=== PATIENT | female | born 1985 | race African-American/Black ===

== ENCOUNTER 2017-08-29 13:37 | Emergency (ER) | payer OTHER ==
[2017-08-29 13:47] VITALS: BMI 29.5
--- NOTE | 2017-08-29 14:53 | PDOC ---
History of Present Illness - General Chief Complaint: Lightheaded Stated Complaint: LETHARGIC, DIZZINESS Time Seen by Provider: 08/29/17 14:10 - History of Present Illness Initial Comments: 08/29/17 14:52 32 yo F with h/o IDDM, total thryoidectomy Hypothyroidism who p/w lightheadedness. Patient reports increased fatigue and lightheadedness following recent return from [facility] ( 07/31/17-08/17/17). States that Thursday () this week patient experienced severe episode of lightheadedness upon waking up from sleep, lasting for minutes and resolving spontaneously at rest. Denies LOC. Currently denies F/C, cough, hemoptysis, N/V, palpitations, orthopnea, PND, leg swelling/pain, CP, SOB, abdominal pain, diarrhea, constipation, urinary complaints, vertigo, sensory changes. Patient with IDDM ( insulin pump remoeved 2 months ago) now on Humalog 10-12 U. Last BS 280 this AM. Denies PO intake today. Last Inuslin use yesertday evening 12 U. Patient also scheduled for oupt. stress testing d/t episodes of transient episodes of palpitations and left sided, non pleuritic, non radiating chest pain , with no identifiable triggers or alleviators. Last experienced late June 2017. PMHx: as noted above. Denies h/o PE/DVT. ROS: as noted above SHx: Denies tobacco, IVDA. Intermittent EtoH. PMD: Dr. Soraida Alamo. Past History - Past Medical History Allergies/Adverse Reactions: Allergies Allergy/AdvReac Type Severity Reaction Status Date / Time avocado Allergy "VOMITING Verified 08/29/17 13:46 AND FACIAL REDNESS" No Known Drug Allergies Allergy Verified 08/29/17 13:46 Home Medications: Ambulatory Orders Atorvastatin Ca [Lipitor] 10 mg PO HS 01/01/16 Insulin Glargine,Hum.rec.anlog [Lantus Solostar PEN -] 0 units SQ BID 01/01/16 Insulin Lispro [Humalog] 6 unit SQ ASDIR 01/01/16 Oxycodone HCl/Acetaminophen [Percocet 5-325 mg Tablet] 1 tab PO Q4H PRN #42 tablet MDD 6 01/02/16 Acetaminophen [Tylenol .Regular Strength -] 325 mg PO Q4H PRN #0 tablet Calcium Carbonate/Vitamin D3 [Calcium 500 + Vit D 200 Caplet] 1 each PO TID #90 tablet 01/03/16 Levothyroxine [Synthroid -] 50 mcg PO DAILY #30 tablet MDD 1 01/03/16 COPD: No Diabetes: Yes (IDDM DM2 USES INSULIN) HTN: Yes (DENIES) Hypercholesterolemia: Yes Thyroid Disease: Yes (hyperthyroid) - Reproductive History (#): 1 Para: 0 Cervical CA: No Dysfunctional Uterine Bleeding: No Ectopic : No Endometrial CA: No Polycystic Ovaries: No Therapeutic (s) & number: No Tubal Ligation: No Spontaneous : 0 - Immunization History Immunization Up to Date: Yes - Suicide/Smoking/Psychosocial Hx Smoking Status: Yes Smoking History: Never smoked Have you smoked in the past 12 months: No Number of Cigarettes Smoked Daily: 0 Hx Alcohol Use: Yes (occasion) Drug/Substance Use Hx: No Substance Use Type: Alcohol Hx Substance Use Treatment: No Review of Systems - Review of Systems Comments:: 08/29/17 14:52 GENERAL/CONSTITUTIONAL: No fever or chills. No weakness. HEAD, EYES, EARS, NOSE AND THROAT: No change in vision. No ear pain or discharge. No sore throat. CARDIOVASCULAR: No chest pain or shortness of breath RESPIRATORY: No cough, wheezing, or hemoptysis. GASTROINTESTINAL: No nausea, vomiting, diarrhea or constipation. GENITOURINARY: No dysuria, frequency, or change in urination. MUSCULOSKELETAL: No joint or muscle swelling or pain. No neck or back pain. SKIN: No rash NEUROLOGIC: + Fatigue and lightheadedness. No headache, vertigo, loss of consciousness, or change in strength/sensation. ENDOCRINE: No increased thirst. No abnormal weight change HEMATOLOGIC/LYMPHATIC: No anemia, easy bleeding, or history of blood clots. ALLERGIC/IMMUNOLOGIC: No hives or skin allergy. *Physical Exam - Vital Signs Last Vital Signs Temp Pulse Resp BP Pulse Ox 98.9 F 67 18 139/84 99 08/29/17 13:44 08/29/17 13:44 08/29/17 13:44 08/29/17 13:44 08/29/17 13:44 - Physical Exam Comments: 08/29/17 14:52 GENERAL: Awake, alert, and fully oriented, in no acute distress HEAD: No signs of trauma, normocephalic, atraumatic EYES: PERRLA, EOMI, sclera anicteric, conjunctiva clear ENT: Auricles normal inspection, hearing grossly normal, nares patent, oropharynx clear without exudates. Moist mucosa NECK: Normal ROM, supple, no lymphadenopathy, JVD, or masses LUNGS: No distress, speaks full sentences, clear to auscultation bilaterally HEART: Regular rate and rhythm, normal S1 and S2, no murmurs, rubs or gallops, peripheral pulses normal and equal bilaterally. EXTREMITIES : Normal inspection, Normal range of motion, no edema. No clubbing or cyanosis. NEUROLOGICAL: Cranial nerves II through XII grossly intact. Normal speech, normal gait, no focal sensorimotor deficits SKIN: Warm, Dry, normal turgor, no rashes or lesions noted ED Treatment Course - LABORATORY CBC & Chemistry Diagram: 08/29/17 15:25 08/29/17 17:11 Medical Decision Making - Medical Decision Making 08/29/17 15:43 32 yo F with h/o IDDM, total thyroidectomy Hypothyroidism who p/w lightheadedness. VSS, AF, A&OX3. Assess for cardiac dyssarythmia, hyperglycemia/ hypoglycemia, hypothyroidism, orthostasis, hypovolemia. Low suspicion of neurogenic or vasovagal syncope. Will assess for Will assess for electrolyte abnml, toxic or metabolic derangements,acid-base disturbances, or underlying infection. PERC neg PE. ED Course: CBC, CMP, VBG, Acetone, Cardiac UA, EKG, CXR 08/29/17 16:31 EKG: NSR with absent TANIYA, STD, or TWI. Nml axis and interval duration. 08/29/17 17:31 CBC: Unremarkable Trop: Neg Acetone: Neg UA: Neg VBG: Unremarkable 08/29/17 17:37 CMP: Unremarkable 08/29/17 17:50 Patient stable for d/c with return precautions. Able to ambulate without difficulty. *DC/Admit/Observation/Transfer Diagnosis at time of Disposition: Lightheadedness - Referrals Referrals: Soraida Alamo MD [Primary Care Provider] - - Patient Instructions Printed Discharge Instructions: DI for Fatigue Additional Instructions: Please return to the emergency department with any new or worsening symptoms or concerns. Please follow up with your primary care physician within 72 hours. - Post Discharge Activity - Attestations Physician Attestion: 08/29/17 17:32 I attest to the information provided in this note.
[2017-08-29 15:53] LABS: URINE APPEARANCE CLEAR; URINE BILIRUBIN NEGATIVE (<2.0 mg/dL); URINE BLOOD NEGATIVE (NEGATIVE); URINE COLOR LTYELLOW; URINE GLUCOSE (UA) 3+ (NEGATIVE); URINE KETONE TRACE (NEGATIVE); URINE LEUK ESTERASE NEGATIVE (NEGATIVE); URINE NITRITE NEGATIVE (NEGATIVE); URINE PROTEIN NEGATIVE (NEGATIVE); URINE UROBILINOGEN NEGATIVE mg/dL (0.2-1.0)
[2017-08-29] MEDS ORDERED: SODIUM CHLORIDE 1,000 ML IV STA (16:00)
[2017-08-29 16:16] LABS: BASO % 1.3 % (0-2.0); EOS % 1.2 % (0-4.5); HEMATOCRIT 38.3 % (32.4-45.2); HEMOGLOBIN 12.5 GM/dL (10.7-15.3); LYMPH % 50.2 % (8-40); MCHC 32.8 g/dl (32.0-36.0); MEAN CELL VOLUME 88.5 fl (80-96); MEAN PLT VOLUME 10.4 fl (7.5-11.1); MONO % 9.3 % (3.8-10.2); PLATELET COUNT 204 K/MM3 (134-434); RBC 4.32 M/mm3 (3.60-5.2); WHITE BLOOD COUNT 4.9 K/mm3 (4.0-10.0)
[2017-08-29 16:18] LABS: VENOUS PH 7.37 (7.32-7.42)
[2017-08-29 16:19] LABS: VENOUS PC02 42.6 mmHg (38-52); VENOUS PO2 31.8 mmHg (28-48)
[2017-08-29 16:40] LABS: INR 1.08 (0.82-1.09); PROTHROMBIN TIME (PATIENT) 12.2 SEC (9.7-13.0)
--- NOTE | 2017-08-29 17:13 | PDOC ---
Attending Attestation - Resident Resident Name: Willy Lutz - ED Attending Attestation I have performed the following: I have examined & evaluated the patient, The case was reviewed & discussed with the resident, I agree w/resident's findings & plan, Exceptions are as noted - HPI HPI: 08/29/17 17:11 32 yo F with IDDM, thyroidectomy for hyperthyroid, anemia, here with c/o fatigue. noted on returning after month long trip to [facility]. states periods are regular. not . no f/c no weight loss. follows dr beach. - Physicial Exam PE: 08/29/17 17:12 awake alert lungs clear bilaterally heart rrr no mrg abd soft nt nd. skin warm and dry. 2 + dp/ pt. 5/5 all four ext. - Medical Decision Making 08/29/17 17:13 differential hypo or hyperthyroid, hyperglycemia, dehydration anemia. plan labs ekg ua u preg.
[2017-08-29 17:30] LABS: ALBUMIN 3.8 g/dl (3.4-5.0); ANION GAP 11 (8-16); BILIRUBIN,TOTAL 0.3 mg/dL (0.2-1.0); BLOOD UREA NITROGEN 6 mg/dL (7-18); CALCIUM 8.4 mg/dL (8.5-10.1); CHLORIDE 102 mmol/L (98-107); CO2 23 mmol/L (21-32); CREATININE 0.9 mg/dL (0.55-1.02); GLUCOSE,RANDOM 273 mg/dL (74-106); POTASSIUM 4.3 mmol/L (3.5-5.1); SGOT/AST 11 U/L (15-37); SGPT/ALT 16 U/L (12-78); SODIUM 136 mmol/L (136-145); TOT PROT 7.6 g/dl (6.4-8.2)
[2017-08-29 17:31] LABS: ALK PHOS 66 U/L (45-117)
[2017-08-29 19:30] VITALS: BP 127/65; PULSE 69; TEMP 98.1
--- NOTE | 2017-08-30 22:10 | EKG ---
Test Reason : Blood Pressure : / mmHG Vent. Rate : 061 BPM Atrial Rate : 061 BPM P-R Int : 146 ms QRS Dur : 082 ms QT Int : 412 ms P-R-T Axes : 081 084 061 degrees QTc Int : 414 ms NORMAL SINUS RHYTHM NORMAL ECG WHEN COMPARED WITH ECG OF 29-OCT-2014 23:20, VENT. RATE HAS DECREASED BY 40 BPM Confirmed by YESY BLOOD MD ([id number]) on 08/30/2017 10:09:44 PM Referred By: Confirmed By:YESY BLOOD MD
== END 2017-08-29 19:37 | disposition home or self-care (01) ==
LOC: JER 13:37
PROC: 3E0337Z Introduction of Electrolytic and Water Balance Substance into Peripheral Vein, Percutaneous Approach (ICD-10-PCS; principal; 2017-08-29)
DX: R42 Dizziness and giddiness (principal); E11.9 Type 2 diabetes mellitus without complications; Z79.4 Long term (current) use of insulin; E89.0 Postprocedural hypothyroidism
CPT/HCPCS: 36415; 80053; 81003; 82009; 82550; 82553; 82803; 84443; 84484; 84703; 85025; 85610; 93005; 93010; 96360; 99284-25; J7030

== ENCOUNTER 2018-02-23 21:11 | Emergency (ER) | payer OTHER ==
--- NOTE | 2018-02-23 21:26 | PDOC ---
Rapid Medical Evaluation Time Seen by Provider: 02/23/18 21:24 Medical Evaluation: Allergies Allergy/AdvReac Type Severity Reaction Status Date / Time avocado Allergy "VOMITING Verified 08/29/17 13:46 AND FACIAL REDNESS" No Known Drug Allergies Allergy Verified 08/29/17 13:46 02/23/18 21:24 Patient c/o: rt lower abd cramping radiating to right back, no discharge/irreg menses, no other complaints Patient on brief exam:no cva tenderness Patient ordered for: ua, upreg, ucx The patient will proceed to the ED Discharge Disposition - Diagnosis Abdominal pain - Referrals Referrals: Soraida Alamo MD [Primary Care Provider] - - Patient Instructions - Post Discharge Activity
[2018-02-23 21:28] VITALS: BMI 29.0
[2018-02-23 21:57] LABS: URINE APPEARANCE CLEAR; URINE BILIRUBIN NEGATIVE (<2.0 mg/dL); URINE COLOR YELLOW; URINE GLUCOSE (UA) 3+ (NEGATIVE); URINE KETONE NEGATIVE (NEGATIVE); URINE LEUK ESTERASE NEGATIVE (NEGATIVE); URINE NITRITE NEGATIVE (NEGATIVE); URINE PROTEIN NEGATIVE (NEGATIVE); URINE UROBILINOGEN NEGATIVE mg/dL (0.2-1.0)
[2018-02-23 22:02] LABS: HCG,QUALITATIVE URINE Negative
[2018-02-23] MEDS ORDERED: KETOROLAC TROMETHAMINE 30 MG/1 ML VIAL IVPUSH ONE (22:49)
--- NOTE | 2018-02-23 23:01 | PDOC ---
History of Present Illness - General Chief Complaint: Pain, Acute Stated Complaint: RIGHT SIDE PAIN IN THE BACK Time Seen by Provider: 02/23/18 21:24 - History of Present Illness Initial Comments: 02/23/18 23:04 The patient is a 32 year old female with a history of DM, HLD, Hypothyroid who presents for evaluation of abdominal pain and back pain. The patient reports that she usually experiences lower abdominal pain and back pain that she describes as crampy in nature after her menstrual cycle. She notes that her menstrual cycle ended 1 week ago and she has continued to have these symptoms which usually resolve prompting her presentation to the ED for further evaluation. She otherwise denies fevers, chills, SOB, chest pain, nausea, vomiting, or changes with urination or bowel movements. Past History - Past Medical History Allergies/Adverse Reactions: Allergies Allergy/AdvReac Type Severity Reaction Status Date / Time avocado Allergy "VOMITING Verified 08/29/17 13:46 AND FACIAL REDNESS" No Known Drug Allergies Allergy Verified 02/23/18 21:28 Home Medications: Ambulatory Orders Atorvastatin Ca [Lipitor] 10 mg PO HS 01/01/16 Insulin Glargine,Hum.rec.anlog [Lantus Solostar PEN -] 0 units SQ BID 01/01/16 Insulin Lispro [Humalog] 6 unit SQ ASDIR 01/01/16 Levothyroxine [Synthroid -] 50 mcg PO DAILY #30 tablet MDD 1 01/03/16 Cyanocobalamin (Vitamin B-12) [Vitamin B12] 2,500 mcg PO DAILY 02/23/18 Ferrous Sulfate 325 mg PO DAILY 02/23/18 [place]-3S/Dha/Epa/Fish Oil [Fish Oil 1,200 mg Softgel] 1 each PO DAILY 02/23/18 Ramipril 2.5 mg PO DAILY 02/23/18 COPD: No Diabetes: Yes (IDDM DM2 USES INSULIN) HTN: Yes (DENIES) Hypercholesterolemia: Yes Thyroid Disease: Yes (hypothyroid) - Reproductive History (#): 1 Para: 0 Cervical CA: No Dysfunctional Uterine Bleeding: No Ectopic : No Endometrial CA: No Polycystic Ovaries: No Therapeutic (s) & number: No Tubal Ligation: No Spontaneous : 0 - Immunization History Immunization Up to Date: Yes - Suicide/Smoking/Psychosocial Hx Smoking Status: Yes Smoking History: Never smoked Have you smoked in the past 12 months: No Number of Cigarettes Smoked Daily: 0 Information on smoking cessation initiated: No Hx Alcohol Use: No Drug/Substance Use Hx: No Substance Use Type: Alcohol Hx Substance Use Treatment: No Review of Systems - Review of Systems Comments:: 02/23/18 23:12 Constitutional: No fevers, chills, fatigue, malaise HEENT: No Rhinorrhea, nasal congestion, visual changes Cardiovascular: No chest pain, syncope, palpitations, lightheadedness Respiratory: No Cough, SOB, Hemoptysis, Gastrointestinal: Lower abdominal pain. No Nausea, Vomiting, Constipation, Diarrhea, Melena Genitourinary: No Dysuria, Frequency, Urgency, Hesitancy, Hematuria, Musculoskeletal: Lower right back pain. No Myalgia, arthralgia Skin: No rashes, itching, bruising, pallor Neurologic: No Headache, Dizziness, Numbness, Weakness, or Tingling Psychiatric: No Hallucinations. No SI or HI *Physical Exam - Vital Signs Last Vital Signs Temp Pulse Resp BP Pulse Ox 98.1 F 85 16 125/61 100 02/23/18 21:26 02/23/18 21:26 02/23/18 21:26 02/23/18 21:26 02/23/18 21:26 - Physical Exam Comments: 02/23/18 23:12 General Appearance: Nourished. No Apparent Distress HEENT: No Pharyngeal Erythema, Tonsillar Exudate, Tonsillar Erythema Neck: No Cervical Lymphadenopathy Respiratory/Chest: Lungs Clear, Normal Breath Sounds. No Crackles, Rales, Rhonchi, Wheezing Cardiovascular: Regular Rhythm, Regular Rate. No Murmur, Gallops, Rubs Gastrointestinal/Abdominal: Normal Bowel Sounds, Soft. No Guarding, Rebound, Tenderness Pelvic Exam: Normal External Exam. Closed Cervical OS. No CMT. No Adenexal Tenderness Musculoskeletal: No CVA Tenderness Extremity: Normal Capillary Refill Integumentary: Normal Color, Dry, Warm Neurologic: Fully Oriented, Alert, Normal Mood/Affect, Normal Response, Moderate Sedation - Procedure Monitoring Vital Signs: Procedure Monitoring Vital Signs Temperature 98.1 F 02/23/18 21:26 Pulse Rate 85 02/23/18 21:26 Respiratory Rate 16 02/23/18 21:26 Blood Pressure 125/61 02/23/18 21:26 O2 Sat by Pulse Oximetry (%) 100 02/23/18 21:26 ED Treatment Course - LABORATORY CBC & Chemistry Diagram: 02/23/18 23:10 02/23/18 23:10 - ADDITIONAL ORDERS Additional order review: Laboratory Results 02/23/18 21:35 Urine Color Yellow Urine Appearance Clear Urine pH 5.0 Ur Specific [place] 1.025 Urine Protein Negative Urine Glucose (UA) 3+ H Urine Ketones Negative Urine Blood Negative Urine Nitrite Negative Urine Bilirubin Negative Urine Urobilinogen Negative Ur Leukocyte Esterase Negative Urine HCG, Qual Negative Medical Decision Making - Medical Decision Making 02/23/18 23:14 The patient is a 32 year old female with a history of DM, HLD, Hypothyroid who presents for evaluation of abdominal pain and back pain. Differential includes but is not limited to: UTI, Ovarian Pathology, Infectious, Metabolic Derangement , Musculoskeletal. Given the patient's history and physical exam, we will obtain a cbc, cmp, ua, urine preg, transvaginal US to evaluate further. We will treat with toradol and continue to monitor and reassess while here in the ED. 02/24/18 01:57 CBC, cmp, ua, urine preg are unremarkable. Transvaginal US demonstrates a left ovarian cyst but is otherwise unremarkable as read by our director of application development radiologist. CT abdomen/pelvis is unremarkable as read by our director of application development radiologist. The patient continues to appear clinically well on exam. We are comfortable discharging the patient home with primary care provider follow up. We discussed the results, plan, and return precautions with the patient who voiced understanding and is agreeable with the plan. *DC/Admit/Observation/Transfer Diagnosis at time of Disposition: Abdominal pain Qualifiers: Abdominal location: unspecified location Qualified Code(s): R10.9 - Unspecified abdominal pain - Discharge Dispostion Disposition: HOME Condition at time of disposition: Stable Decision to Admit order: No - Referrals Referrals: Soraida Alamo MD [Primary Care Provider] - - Patient Instructions Printed Discharge Instructions: DI for Abdominal Pain-Adult Additional Instructions: Please return to the ER if you experience concerning or worsening symptoms including worsening difficulty breathing, weakness, or chest pain. Your lab results were normal here in the ER. Your Ultrasound and CT scan results were normal here in the ER. Please call to schedule a follow up appointment with your primary care provider and [employer]INE [employer]PERATOR physician within 2-3 days to discuss your ER visit and further management of your symptoms. - Post Discharge Activity
[2018-02-23] MEDS ORDERED: KETOROLAC TROMETHAMINE 30 MG/1 ML VIAL ONE (23:17)
[2018-02-23 23:21] LABS: BASO % 1.2 % (0-2.0); EOS % 1.3 % (0-4.5); HEMATOCRIT 34.8 % (32.4-45.2); HEMOGLOBIN 12.2 GM/dL (10.7-15.3); LYMPH % 48.8 % (8-40); MCH 30.9 pg (25.7-33.7); MCHC 35.1 g/dl (32.0-36.0); MEAN CELL VOLUME 88.1 fl (80-96); MEAN PLT VOLUME 10.1 fl (7.5-11.1); MONO % 7.3 % (3.8-10.2); NEUT % 41.4 % (42.8-82.8); PLATELET COUNT 218 K/MM3 (134-434); RBC 3.95 M/mm3 (3.60-5.2); RDW 13.5 % (11.6-15.6); WHITE BLOOD COUNT 5.9 K/mm3 (4.0-10.0)
[2018-02-24] MEDS ORDERED: SODIUM CHLORIDE 1,000 ML IV STA (00:18)
[2018-02-24 00:19] LABS: ALBUMIN 3.7 g/dl (3.4-5.0); ALK PHOS 69 U/L (45-117); ANION GAP 7 MMOL/L (8-16); BILIRUBIN,TOTAL 0.2 mg/dL (0.2-1); BLOOD UREA NITROGEN 13 mg/dL (7-18); CALCIUM 8.5 mg/dL (8.5-10.1); CHLORIDE 101 mmol/L (98-107); CO2 27 mmol/L (21-32); POTASSIUM 4.2 mmol/L (3.5-5.1); SGOT/AST 12 U/L (15-37); SGPT/ALT 15 U/L (13-61); SODIUM 135 mmol/L (136-145); TOT PROT 7.3 g/dl (6.4-8.2)
[2018-02-24 00:21] LABS: GLUCOSE,RANDOM 326 mg/dL (74-106)
--- NOTE | 2018-02-24 01:31 | PDOC ---
Attending Attestation - HPI HPI: 02/24/18 01:47 The patient is a 32 year old female, with a significant PMH of DM, HLD, and Hypothyroidism who presents to the emergency department with abdominal pain for 1 week. Patient states she normally has this lower abdominal cramping after her menstrual cycle but reports that the abdominal pain is radiating to her back, which is different from her regular cramping. Patient reports her back pain is exacerbated with moving and walking. Patient is also complaining of intermittent right leg pain. Patient states her menstrual period ended last week but is continuing to have this abdominal cramping. Patient denies any new sexual partners or vaginal discharge. Patient is not concerned about STDs. The patient denies chest pain, shortness of breath, headache and dizziness. Denies fever, chills, nausea, vomit, diarrhea and constipation. Denies vaginal discharge, dysuria, frequency, urgency and hematuria. Allergies: NKA Past surgical history: None reported. Social history: No reported alcohol, drug or cigarette use. <Olga Lidia Way - Last Filed: 02/24/18 01:47> - Resident Resident Name: Krishna Myers - ED Attending Attestation I have performed the following: I have examined & evaluated the patient, The case was reviewed & discussed with the resident, I agree w/resident's findings & plan, Exceptions are as noted - Physicial Exam PE: 02/24/18 01:39 awake alert lungs clear bilaterally heart rrr no mrg abd soft mild rlq ttp. no rebound no guarding. no cva tenderness. ext wwp no edema. no calf tenderness. pelvic performed by dr. myers. ext wwp . no edema. no calf tenderess. - Medical Decision Making 02/24/18 01:40 32 yo F with 1 week rlq pain. usually associated with menses, but this pain is different. worse with walking, pushing on stomach. no f/c no n/v. differential ovarian cyst, torsion, appendicitis, mesenteric adenitis. denies vaginal dc or new sex partner. no concerns for std. tvus is left ovarian cyst 1.4cm complex, d/w pt recommend fu us in 6 weeks. will obtain cta /p rlq, . 02/24/18 04:[address] a/p. no appendictis. will dc home fu with gynecology. <Tamra Chapin - Last Filed: 02/24/18 04:01>
[2018-02-24 05:09] VITALS: BP 126/78; PULSE 89; TEMP 98.5
== END 2018-02-24 03:30 | disposition home or self-care (01) ==
LOC: JER 21:11
PROC: 3E0337Z Introduction of Electrolytic and Water Balance Substance into Peripheral Vein, Percutaneous Approach (ICD-10-PCS; principal; 2018-02-23)
PROC: 3E0333Z Introduction of Anti-inflammatory into Peripheral Vein, Percutaneous Approach (ICD-10-PCS; 2018-02-23)
DX: R10.30 Lower abdominal pain, unspecified (principal); E78.00 Pure hypercholesterolemia, unspecified; E11.9 Type 2 diabetes mellitus without complications; Z79.4 Long term (current) use of insulin; E03.9 Hypothyroidism, unspecified
CPT/HCPCS: 36415; 74177-TC; 76830-TC; 80053; 81003; 84703; 85025; 87086; 96361; 96374; 99283-25; J7030

== ENCOUNTER 2018-06-29 11:21 | Emergency (ER) | payer OTHER ==
[2018-06-29 11:47] VITALS: BP 118/68; PULSE 76; TEMP 98.6; BMI 28.4
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
== END 2018-06-29 13:12 | disposition home or self-care (01) ==
LOC: JERFT 11:21
DX: S39.012A Strain of muscle, fascia and tendon of lower back, initial encounter (principal); S40.011A Contusion of right shoulder, initial encounter; V79.59XA Passenger on bus injured in collision with other motor vehicles in traffic accident, initial encounter; Y93.89 Activity, other specified; Y92.414 Local residential or business street as the place of occurrence of the external cause; Y99.0 Civilian activity done for income or pay; I10 Essential (primary) hypertension; E11.9 Type 2 diabetes mellitus without complications; Z79.4 Long term (current) use of insulin; E78.00 Pure hypercholesterolemia, unspecified; E03.9 Hypothyroidism, unspecified
CPT/HCPCS: 99281-25

== ENCOUNTER 2019-11-24 07:53 | Emergency (ER) | payer OTHER ==
[2019-11-24 08:11] VITALS: TEMP 99.1; BMI 30.7
--- NOTE | 2019-11-24 08:12 | PDOC ---
History of Present Illness - General Chief Complaint: Chest Pain Stated Complaint: CHEST PAIN 9 Time Seen by Provider: 11/24/19 08:11 History Source: Patient Exam Limitations: No Limitations - History of Present Illness Initial Comments: 11/24/19 08:12 34yF w PMHx DM, HLD, thyroid resection hypothyroidism, morbid obesity presenting w 6mo intermittent moderate sharp shooting midsternal/L chest pain lasting few seconds at a time. Not exertional/positional. Worse w palpation of chest wall. Takes 1000mg tylenol intermittently w/o relief. Addressed symptom w PCP Dr Alamo who attributed it to stress/costochondritis. Denies fever, n/v, cough, SOB, leg swelling, not on control. Past History - Medical History Allergies/Adverse Reactions: Allergies Allergy/AdvReac Type Severity Reaction Status Date / Time avocado Allergy "VOMITING Verified 06/29/18 11:45 AND FACIAL REDNESS" No Known Drug Allergies Allergy Verified 06/29/18 11:45 Home Medications: Ambulatory Orders Atorvastatin Ca [Lipitor] 10 mg PO HS 01/01/16 Insulin Glargine,Hum.rec.anlog [Lantus Solostar PEN -] 0 units SQ BID 01/01/16 Insulin Lispro [Humalog] 6 unit SQ ASDIR 01/01/16 Levothyroxine [Synthroid -] 50 mcg PO DAILY #30 tablet MDD 1 01/03/16 Cyanocobalamin (Vitamin B-12) [Vitamin B12] 2,500 mcg PO DAILY 02/23/18 Ferrous Sulfate 325 mg PO DAILY 02/23/18 Fairplay-3S/Dha/Epa/Fish Oil [Fish Oil 1,200 mg Softgel] 1 each PO DAILY 02/23/18 Ramipril 2.5 mg PO DAILY 02/23/18 Cyclobenzaprine HCl [Flexeril 10 mg] 10 mg PO HS PRN #10 tablet 06/29/18 COPD: No Diabetes: Yes (IDDM DM2 USES INSULIN) HTN: Yes (DENIES) Hypercholesterolemia: Yes Thyroid Disease: Yes (hypothyroid) - Reproductive History Is Patient Now?: No (#): 1 Para: 0 Cervical CA: No Dysfunctional Uterine Bleeding: No Ectopic : No Endometrial CA: No Polycystic Ovaries: No Therapeutic (s) & number: No Tubal Ligation: No Spontaneous : 0 - Immunization History Immunization Up to Date: Yes - Psycho-Social/Smoking History Smoking Status: Yes Smoking History: Never smoked Have you smoked in the past 12 months: No Number of Cigarettes Smoked Daily: 0 Information on smoking cessation initiated: No - Substance Abuse Hx (Audit-C & DAST Scrn) How often the patient has a drink containing alcohol: Never Score: In Men: 4 or > Positive; In Women: 3 or > Positive: 0 Screen Result (Pos requires Nsg. Audit-10AR): Negative In the last yr the pt used illegal drug/Rx for NonMed reason: No Score: Yes response is considered Positive: 0 Screen Result (Positive result requires Nsg. DAST-10): Negative Review of Systems - Review of Systems Constitutional: No: Chills, Fever HEENTM: No: Eye Pain, Nose Pain Respiratory: No: Cough, Shortness of Breath Cardiac (ROS): Yes: Chest Pain. No: Lightheadedness ABD/GI: No: Nausea, Vomiting : No: Burning, Dysuria Musculoskeletal: No: Back Pain, Joint Pain Integumentary: No: Bruising, Dryness Neurological: No: Headache, Seizure Psychiatric: No: Anxiety, Depression Endocrine: No: Intolerance to Cold, Intolerance to Heat Hematologic/Lymphatic: No: Anemia, Blood Clots *Physical Exam - Vital Signs Last Vital Signs Temp Pulse Resp BP Pulse Ox 99.1 F 85 17 125/72 100 11/24/19 08:00 11/24/19 08:00 11/24/19 08:00 11/24/19 08:00 11/24/19 08:00 - Physical Exam General Appearance: Yes: Nourished, Appropriately Dressed, Mild Distress HEENT: positive: EOMI, [place], Normal Voice, Hearing Grossly Normal. negative: Scleral Icterus (R), Scleral Icterus (L) Respiratory/Chest: positive: Chest Tender (sternum, L chest), Lungs Clear, Normal Breath Sounds. negative: Respiratory Distress, Crackles, Rales, Rhonchi, Stridor, Wheezing Cardiovascular: positive: Regular Rhythm, Regular Rate, S1, S2. negative: Edema, Murmur Gastrointestinal/Abdominal: positive: Normal Bowel Sounds, Flat, Soft. negative: Tender, Organomegaly Integumentary: positive: Normal Color, Warm. negative: Dry Neurologic: positive: Fully Oriented, Alert, Normal Mood/Affect, Normal Respons e, Responsive Heart Score/ECG Review - History History: Slightly suspicious - Electrocardiogram EKG: Normal - Age Age: </= 45 - Risk Factors Risk Factors Heart Score: Yes Hx Hypercholesterolemia, Yes Hx Diabetes, Yes Hx Obesity Based on the list above the patient has:: >/=3 risk factors or Hx atherosclerotic disease - Troponin Troponin: </= normal limit - Score Heart Score - Total: 2 ED Treatment Course - LABORATORY CBC & Chemistry Diagram: 11/24/19 08:55 11/24/19 08:55 Medical Decision Making - Medical Decision Making 11/24/19 08:45 CXR - clear lung barba EKG - NSR w sinus arrhythmia, HR 68, QTc 414, no ST changes --- 34yF w PMHx DM, HLD, thyroid resection hypothyroidism, morbid obesity presenting w 6mo intermittent moderate sharp shooting midsternal/L chest pain lasting few seconds at a time. Likely costochondritis (chest tender to palpation). Low concern for ACS (no ST changes, neg trop) vs PNA (clear lungs) vs (neg) vs PE (PERC neg) Given ibuprofen DC home w PCP f/u, supportive care Discharge - Discharge Information Problems reviewed: Yes Clinical Impression/Diagnosis: Costochondritis Condition: Improved Disposition: HOME - Follow up/Referral Referrals: Soraida Alamo MD [Primary Care Provider] - - Patient Discharge Instructions Patient Printed Discharge Instructions: DI for Costochondritis Additional Instructions: Your workup did not show anything concerning Take 600mg ibuprofen or 1000mg tylenol every 6 hours if you have pain Please follow up with your primary care doctor - Post Discharge Activity
[2019-11-24] MEDS ORDERED: IBUPROFEN 600 MG TABLET (FP) PO ONE ×2 (08:39→08:44)
[2019-11-24 09:29] LABS: BASO % 0.9 % (0-2.0); EOS % 0.7 % (0-4.5); HEMATOCRIT 36.1 % (32.4-45.2); HEMOGLOBIN 12.1 GM/dL (10.7-15.3); LYMPH % 43.9 % (8-40); MCH 29.6 pg (25.7-33.7); MCHC 33.6 g/dl (32.0-36.0); MEAN CELL VOLUME 88.1 fl (80-96); MEAN PLT VOLUME 9.9 fl (7.5-11.1); MONO % 5.7 % (3.8-10.2); NEUT % 48.8 % (42.8-82.8); PLATELET COUNT 203 K/MM3 (134-434); RDW 13.5 % (11.6-15.6); WHITE BLOOD COUNT 4.5 K/mm3 (4.0-10.0)
[2019-11-24 09:53] LABS: ALBUMIN 3.5 g/dl (3.4-5.0); ALK PHOS 67 U/L (45-117); ANION GAP 10 MMOL/L (8-16); BILIRUBIN,TOTAL 0.4 mg/dL (0.2-1); BLOOD UREA NITROGEN 10.3 mg/dL (7-18); CALCIUM 8.4 mg/dL (8.5-10.1); CHLORIDE 106 mmol/L (98-107); CO2 22 mmol/L (21-32); CREATININE 0.8 mg/dL (0.55-1.3); GLUCOSE,RANDOM 231 mg/dL (74-106); POTASSIUM 3.6 mmol/L (3.5-5.1); SGOT/AST 13 U/L (15-37); SGPT/ALT 19 U/L (13-61); SODIUM 138 mmol/L (136-145); TOT PROT 7.1 g/dl (6.4-8.2)
[2019-11-24 10:22] VITALS: BP 111/56; PULSE 55
--- NOTE | 2019-11-24 10:46 | PDOC ---
Documentation entered by Natasha Tovar SCRIBE, acting as scribe for Ana Ledesma MD. Ana Ledesma MD: This documentation has been prepared by the marshaibe, Natasha Tovar SCRIBE, under my direction and personally reviewed by me in its entirety. I confirm that the documentation accurately reflects all work, treatment, procedures, and medical decision making performed by me. Attending Attestation - Resident Resident Name: Roque Pardo - ED Attending Attestation I have performed the following: I have examined & evaluated the patient, The case was reviewed & discussed with the resident, I agree w/resident's findings & plan, Exceptions are as noted - HPI HPI: 11/24/19 09:32 The patient is a 34-year-old female with a past medical history significant for hypothyroidism, DM, and HLD who presents to the emergency department with years of intermittent episodes of left-sided chest pain. The patient reports the pain presents at rest, non-radiating and localized to the left-sided chest wall, with a severity of 7/10, unrelieved with Tylenol. The pain typically lasts for 1-2 seconds before it self resolves. Denies associated nausea, vomiting, diaphoresis. Denies pain radiation to the arms, neck, back, or jaw. Denies pain aggravation with exertion. Has seen her PMD and cardiology and had labs, an echo and EKG all of which were negative by her report. Pain is not pleuritic. No exogenous hormone use. No recent travel or immobility. Denies headache, F/C, dizziness, focal weakness/numbness, diaphoresis, N/V/D, abd pain, LE edema Allergies: NKDA. Avocado PCP: Dr. Alamo. - Physicial Exam PE: 11/24/19 10:21 GENERAL: Awake, alert, and fully oriented, in no acute distress EYES: PERRLA, EOMI, sclera anicteric, conjunctiva clear ENT: oropharynx clear without exudates. Moist mucosa NECK: Normal ROM, supple, no lymphadenopathy, JVD, or masses LUNGS: Breath sounds equal, clear to auscultation bilaterally. No wheezes, and no crackles HEART: Regular rate and rhythm, normal S1 and S2, no murmurs, rubs or gallops. +ttp to L 3rd and 4th costochondral joints, also worse when opening up chest ABDOMEN: Soft, nontender, normoactive bowel sounds. No guarding, no rebound. No masses EXTREMITIES: Normal range of motion, no edema. No clubbing or cyanosis. No cords, erythema, or tenderness NEUROLOGICAL: Normal speech, cranial nerves intact, negative pronator drift, 5/5 strength in all 4 extremities, normal sensation to light touch in all 4 extremities, normal cerebellar exam, normal gait, normal reflexes and tone SKIN: Warm, Dry, normal turgor, no rashes or lesions noted. - Medical Decision Making 11/24/19 10:28 34yo F hx HTH, HL, DM presents to the ED with years of CP Vitals wnl Exam with reproducible CP Given medical hx, check cardiac enzymes which were wnl Glucose was elevated to 230 - pt states she did not take insulin yet today but will take at home CXR with no acute path ekg non ischemic Unlikely ACS. Meets no PERC criteria thus low likelihood PE, also given duration of symptoms, highly unlikely No episodes of CP in the ED Likely MSK pain as it's reproducible Although pt has risk factors, she has had w/u with cardiolgist for this pain last wk She is well appearing, clinically stable for DC home. Wll DC home with close pmd/cards f/u and strict return precautions which were discussed Pt requests work note which was provided for today I discussed the physical exam findings, ancillary test results and final diagnoses with the patient. I answered all of the patient's questions. The patient was satisfied with the care received and felt comfortable with the discharge plan and treatment plan. The patient will call their primary care physician within 24 hours to arrange follow-up and will return to the Emergency Department with any new, persistent or worsening symptoms. Discharge - Discharge Information Problems reviewed: Yes Clinical Impression/Diagnosis: Costochondritis, Chest pain, Hyperglycemia Condition: Improved Disposition: HOME - Follow up/Referral Referrals: Soraida Alamo MD [Primary Care Provider] - - Patient Discharge Instructions Patient Printed Discharge Instructions: DI for Chest Pain Additional Instructions: Your blood work and chest x-ray were normal. Take 600mg ibuprofen or 1000mg tylenol every 6 hours if you have pain. Do not ta ke more than 4000mg of tylenol per day. 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
--- NOTE | 2019-11-24 12:35 | EKG ---
Test Reason : Blood Pressure : / mmHG Vent. Rate : 068 BPM Atrial Rate : 068 BPM P-R Int : 138 ms QRS Dur : 088 ms QT Int : 390 ms P-R-T Axes : 063 082 038 degrees QTc Int : 414 ms NORMAL SINUS RHYTHM WITH SINUS ARRHYTHMIA NORMAL ECG WHEN COMPARED WITH ECG OF 29-AUG-2017 16:25, NO SIGNIFICANT CHANGE WAS FOUND Confirmed by THAO GALLOWAY MD ([id number]) on 11/24/2019 12:34:58 PM Referred By: Confirmed By:THOA GALLOWAY MD
== END 2019-11-24 10:21 | disposition home or self-care (01) ==
LOC: JER 07:53
DX: M94.0 Chondrocostal junction syndrome [Tietze] (principal)
CPT/HCPCS: 36415; 71046-TC-FY; 80053; 82550; 82553; 84484; 84703; 85025; 93005; 93010; 99285-25

== ENCOUNTER 2020-08-11 07:59 | Emergency (ER) | payer OTHER ==
[2020-08-11 08:09] VITALS: BP 126/72; PULSE 85; TEMP 98.9; BMI 28.0
[2020-08-11 09:01] LABS: PH,URINE 5.5 (5.0-8.0); URINE APPEARANCE CLEAR; URINE BILIRUBIN NEGATIVE (NEGATIVE); URINE COLOR YELLOW; URINE GLUCOSE (UA) NEGATIVE (NEGATIVE); URINE KETONE NEGATIVE (NEGATIVE); URINE LEUK ESTERASE NEGATIVE (NEGATIVE); URINE NITRITE NEGATIVE (NEGATIVE); URINE PROTEIN NEGATIVE (NEGATIVE); URINE UROBILINOGEN 0.2 mg/dL (0.2-1.0)
[2020-08-11] MEDS ORDERED: ACETAMINOPHEN 325 MG TABLET (FP) PO ONE (10:05)
[2020-08-11] MEDS ORDERED: ACETAMINOPHEN 325 MG TABLET (FP) ONE (10:11)
== END 2020-08-11 10:59 | disposition home or self-care (01) ==
LOC: JER 07:59
DX: R10.84 Generalized abdominal pain (principal); Z3A.01 Less than 8 weeks gestation of pregnancy
CPT/HCPCS: 36415; 76817-TC; 81003; 84702; 86850; 86900; 86901; 87086; 99284-25

== ENCOUNTER 2020-08-12 08:13 | Emergency (ER) | payer OTHER ==
[2020-08-12 08:17] VITALS: BP 105/68; PULSE 75; TEMP 97; BMI 28.0
== END 2020-08-12 09:28 | disposition home or self-care (01) ==
LOC: JER 08:13
DX: O20.0 Threatened abortion (principal)
CPT/HCPCS: 99284-25

== ENCOUNTER 2021-10-20 08:46 | Emergency (ER) | payer OTHER ==
[2021-10-20 09:04] VITALS: BP 123/67; PULSE 72; RESP 18; TEMP 98.4; BMI 29.8
[2021-10-20] MEDS ORDERED: IBUPROFEN 600 MG TABLET (FP) PO ONE ×2 (10:35→11:08)
== END 2021-10-20 11:13 | disposition home or self-care (01) ==
LOC: JERFT 08:46 → JER 08:46 → JERFT 11:13
DX: L73.9 Follicular disorder, unspecified (principal); L03.811 Cellulitis of head [any part, except face]
CPT/HCPCS: 99283-25

== ENCOUNTER 2021-12-27 12:46 | Emergency (ER) | payer OTHER ==
[2021-12-27 13:13] VITALS: BP 136/88; PULSE 63; RESP 18; TEMP 98.6; BMI 29.8
== END 2021-12-27 14:26 | disposition home or self-care (01) ==
LOC: JERFT 12:46
PROC: 0H9CXZZ Drainage of Left Upper Arm Skin, External Approach (ICD-10-PCS; principal; 2021-12-27)
DX: L02.412 Cutaneous abscess of left axilla (principal)
CPT/HCPCS: 99282-25

== ENCOUNTER 2022-03-04 04:43 | Day surgery (SDC) | payer OTHER ==
[2022-02-27 12:46] VITALS: BMI 30.7
[2022-03-04] MEDS ORDERED: FENTANYL CITRATE/PF 50 MCG/ML VIAL ONE (12:59)
[2022-03-04 14:09] VITALS: TEMP 97.6
[2022-03-04 14:37] VITALS: BP 113/72; PULSE 72; RESP 17
== END 2022-03-04 15:50 | disposition home or self-care (01) ==
LOC: JASU-ENDO 04:43
PROVIDERS: ATTEND Internal Medicine Gastroenterology
PROC: 0DB68ZX Excision of Stomach, Via Natural or Artificial Opening Endoscopic, Diagnostic (ICD-10-PCS; 2022-03-04)
PROC: 0DB78ZX Excision of Stomach, Pylorus, Via Natural or Artificial Opening Endoscopic, Diagnostic (ICD-10-PCS; 2022-03-04)
PROC: 0DJD8ZZ Inspection of Lower Intestinal Tract, Via Natural or Artificial Opening Endoscopic (ICD-10-PCS; principal; 2022-03-04 12:15)
DX: D50.9 Iron deficiency anemia, unspecified (principal); K64.8 Other hemorrhoids; K63.89 Other specified diseases of intestine; K29.50 Unspecified chronic gastritis without bleeding
CPT/HCPCS: 82962; 88305-TC; 88342-TC

== ENCOUNTER 2023-03-20 06:46 | Inpatient (IN) | payer OTHER ==
[2023-03-20 07:01] VITALS: BMI 30.7
[2023-03-20] MEDS ORDERED: ONDANSETRON 4 MG/2 ML VIAL IVPUSH ONE (07:32)
[2023-03-20] MEDS ORDERED: SODIUM CHLORIDE 0.9% 500 ML INFUS.BAG IV ONE (07:32)
[2023-03-20] MEDS ORDERED: ONDANSETRON 4 MG/2 ML VIAL ONE (08:05)
[2023-03-20] MEDS ORDERED: ACETAMINOPHEN 1000 MG/100 ML BAG IVPB ONE (08:06)
[2023-03-20] MEDS ORDERED: ACETAMINOPHEN INJECTION 100 ML IVPB ONE (08:47)
[2023-03-20 08:53] LABS: HEMATOCRIT 33.1 % (32.4-45.2); HEMOGLOBIN 10.8 GM/dL (10.7-15.3); MCH 29.1 pg (25.7-33.7); MCHC 32.6 g/dl (32.0-36.0); MEAN CELL VOLUME 89.3 fl (80-96); MEAN PLT VOLUME 10.3 fl (7.5-11.1); PLATELET COUNT 194 10^3/uL (134-434); RBC 3.71 M/mm3 (3.60-5.2); RDW 13.5 % (11.6-15.6); WHITE BLOOD COUNT 20.5 K/mm3 (4.0-10.0)
[2023-03-20 08:54] LABS: VENOUS BASE EXCESS -7.4 mmol/L (-2-2); VENOUS O2 SATURATION 96.5 % (70-80); VENOUS PCO2 30.4 mmHg (38-52); VENOUS PH 7.361 (7.310-7.410)
[2023-03-20 09:44] LABS: ANISOCYTOSIS 0; MACROCYTOSIS 1+
[2023-03-20 10:10] LABS: URINE APPEARANCE CLEAR; URINE BILIRUBIN NEGATIVE (NEGATIVE); URINE COLOR YELLOW; URINE GLUCOSE (UA) 3+ (NEGATIVE); URINE KETONE 2+ (NEGATIVE); URINE LEUK ESTERASE NEGATIVE (NEGATIVE); URINE NITRITE NEGATIVE (NEGATIVE); URINE PROTEIN NEGATIVE (NEGATIVE); URINE UROBILINOGEN 0.2 mg/dL (0.2-1.0)
[2023-03-20 10:34] LABS: CHLORIDE 97 mmol/L (98-107); SODIUM 130 mmol/L (136-145)
[2023-03-20 10:35] LABS: CALCIUM 8.8 mg/dL (8.5-10.1)
[2023-03-20 10:36] LABS: ALBUMIN 3.6 g/dl (3.4-5.0); ANION GAP 14 mmol/L (4-13); BLOOD UREA NITROGEN 24.9 mg/dL (7-18); CO2 19 mmol/L (21-32)
[2023-03-20 10:39] LABS: CREATININE 1.4 mg/dL (0.55-1.3); SGOT/AST 43 U/L (15-37)
[2023-03-20 10:40] LABS: BILIRUBIN,TOTAL 0.4 mg/dL (0.2-1); SGPT/ALT 19 U/L (13-61); TOT PROT 7.1 g/dl (6.4-8.2)
[2023-03-20 10:42] LABS: ALK PHOS 67 U/L (45-117)
[2023-03-20 10:47] LABS: GLUCOSE,RANDOM 536 mg/dL (74-106)
[2023-03-20] MEDS ORDERED: INSULIN REGULAR HUMAN 100 UNITS/ML *VIAL IV ONE (10:54)
[2023-03-20] MEDS ORDERED: SODIUM CHLORIDE 1,000 ML IV STA (12:34)
[2023-03-20] MEDS ORDERED: SODIUM CHLORIDE 1,000 ML IV SCH ×2 (12:45→15:06)
[2023-03-20 13:19] LABS: ANION GAP 19 mmol/L (4-13); BLOOD UREA NITROGEN 30.2 mg/dL (7-18); CALCIUM 8.7 mg/dL (8.5-10.1); CHLORIDE 100 mmol/L (98-107); CO2 13 mmol/L (21-32); CREATININE 1.6 mg/dL (0.55-1.3); POTASSIUM 4.8 mmol/L (3.5-5.1); SODIUM 133 mmol/L (136-145)
[2023-03-20] MEDS ORDERED: INSULIN REGULAR HUMAN 100 UNITS/ML *VIAL* (FOR IVP) IVPUSH ONE ×2 (15:05→17:03)
[2023-03-20] MEDS ORDERED: INSULIN REGULAR 100 UNITS in SODIUM CHLORIDE 99 ML IVPB SCH ×2 (15:15→17:15)
[2023-03-20] MEDS ORDERED: INSULIN REGULAR HUMAN 100 UNITS/ML *VIAL IVPUSH ONE (15:21)
[2023-03-20] MEDS ORDERED: ACETAMINOPHEN 325 MG TABLET (FP) PO PRN (17:00)
[2023-03-20] MEDS ORDERED: DEXTROSE 50%-WATER - 25 GM/50 ML VIAL IVPUSH PRN (17:03)
[2023-03-20 20:14] LABS: POTASSIUM 3.6 mmol/L (3.5-5.1)
[2023-03-20 20:16] LABS: BLOOD UREA NITROGEN 34.8 mg/dL (7-18)
[2023-03-20 20:19] LABS: CREATININE 1.5 mg/dL (0.55-1.3)
[2023-03-20] MEDS ORDERED: DEXTROSE 5%-NORMAL SALINE 1,000 ML IV SCH (20:30)
[2023-03-20] MEDS: MUPIROCIN 2% TOPICAL OINTMENT FOR DECOLONIZATION NS SCH (20:59)
[2023-03-20] MEDS ORDERED: CHLORHEXIDINE GLUCONATE 4% CLEANSER FOR DECOLONIZATION TP SCH (22:00)
[2023-03-21 00:38] LABS: POTASSIUM 3.6 mmol/L (3.5-5.1)
[2023-03-21 00:39] LABS: CALCIUM 7.9 mg/dL (8.5-10.1)
[2023-03-21 00:40] LABS: BLOOD UREA NITROGEN 34.7 mg/dL (7-18)
[2023-03-21 00:43] LABS: CREATININE 1.2 mg/dL (0.55-1.3)
[2023-03-21] MEDS ORDERED: DEXTROSE 10%-WATER - 1,000 ML IV SCH (00:45)
[2023-03-21 07:19] LABS: POTASSIUM 3.8 mmol/L (3.5-5.1)
[2023-03-21 07:20] LABS: HEMATOCRIT 32.2 % (32.4-45.2); HEMOGLOBIN 10.7 GM/dL (10.7-15.3); MCH 29.2 pg (25.7-33.7); MCHC 33.1 g/dl (32.0-36.0); MEAN CELL VOLUME 88.2 fl (80-96); MEAN PLT VOLUME 9.5 fl (7.5-11.1); PLATELET COUNT 203 10^3/uL (134-434); RBC 3.66 M/mm3 (3.60-5.2); RDW 13.7 % (11.6-15.6); WHITE BLOOD COUNT 20.1 K/mm3 (4.0-10.0)
[2023-03-21 07:26] LABS: BLOOD UREA NITROGEN 33.3 mg/dL (7-18)
[2023-03-21 07:28] LABS: CALCIUM 7.7 mg/dL (8.5-10.1)
[2023-03-21 07:29] LABS: CREATININE 1.2 mg/dL (0.55-1.3); MAGNESIUM 2.1 mg/dL (1.8-2.4); PHOSPHOROUS 2.6 mg/dL (2.5-4.9)
[2023-03-21] MEDS ORDERED: INSULIN (LEVEMIR) 100 UNITS/ML UNITS SQ SCH (07:51)
[2023-03-21] MEDS ORDERED: INSULIN (NOVOLOG) ASPART 100 UNITS/ML 10ML VIAL SQ ONE (09:02)
[2023-03-21] MEDS: MUPIROCIN 2% TOPICAL OINTMENT FOR DECOLONIZATION NS SCH (09:04)
[2023-03-21] MEDS ORDERED: ENOXAPARIN NA (PORCINE) 40 MG/0.4 ML DISP.SYRIN SQ SCH (10:00)
[2023-03-21] MEDS ORDERED: LEVOTHYROXINE NA 100 MCG TABLET (FP) PO SCH (10:00)
[2023-03-21 10:03] LABS: ANISOCYTOSIS 0; HELMET CELLS 0; HOWELL-JOLLY BODIES 0; MACROCYTOSIS 0; OVALOCYTE 0; ROULEAU 0; SICKELED CELLS 0; TARGET CELLS 0; TEAR DROP CELLS 0; TOXIC GRANULATION 0
[2023-03-21] MEDS ORDERED: INSULIN SLIDING SCALE (NOVOLOG) 1 VIAL SQ SCH ×2 (11:00→22:00)
[2023-03-22] MEDS ORDERED: ACETAMINOPHEN 325 MG TABLET (FP) PO PRN (07:33)
[2023-03-22] MEDS ORDERED: DEXTROSE 50%-WATER 25 GM/50 ML DISP.SYRIN IVPUSH PRN (07:33)
[2023-03-22] MEDS ORDERED: LEVOTHYROXINE NA 200 MCG TABLET PO SCH (07:45)
[2023-03-22 08:56] LABS: BASO % 0.5 % (0-2.0); EOS % 0.7 % (0-4.5); HEMATOCRIT 32.3 % (32.4-45.2); HEMOGLOBIN 10.7 GM/dL (10.7-15.3); LYMPH % 29.6 % (8-40); MCH 29.2 pg (25.7-33.7); MEAN CELL VOLUME 88.4 fl (80-96); MEAN PLT VOLUME 9.1 fl (7.5-11.1); MONO % 6.4 % (3.8-10.2); NEUT % 62.8 % (42.8-82.8); PLATELET COUNT 178 10^3/uL (134-434); RBC 3.65 M/mm3 (3.60-5.2); RDW 13.7 % (11.6-15.6); WHITE BLOOD COUNT 9.1 K/mm3 (4.0-10.0)
[2023-03-22 09:10] LABS: POTASSIUM 3.9 mmol/L (3.5-5.1)
[2023-03-22 09:12] LABS: CALCIUM 8.5 mg/dL (8.5-10.1)
[2023-03-22 09:13] LABS: ALBUMIN 2.9 g/dl (3.4-5.0); BLOOD UREA NITROGEN 11.6 mg/dL (7-18)
[2023-03-22 09:16] LABS: CREATININE 0.8 mg/dL (0.55-1.3); PHOSPHOROUS 2.2 mg/dL (2.5-4.9)
[2023-03-22 09:17] LABS: BILIRUBIN,TOTAL 0.3 mg/dL (0.2-1)
[2023-03-22] MEDS ORDERED: ENOXAPARIN NA (PORCINE) 40 MG/0.4 ML DISP.SYRIN SQ SCH (10:00)
[2023-03-22 14:04] VITALS: BP 119/65; PULSE 87; RESP 18; TEMP 98.7
[2023-03-22] MEDS ORDERED: INSULIN SLIDING SCALE (NOVOLOG) 1 VIAL SQ SCH (22:00)
== END 2023-03-22 16:40 | disposition home or self-care (01) | DRG 420 ==
LOC: JER 06:46 → JERBED 13:21 → JICU 17:16 → J5S 03-21 20:31
PROVIDERS: ADMIT Internal Medicine; ATTEND Internal Medicine
PROC: 05HB33Z Insertion of Infusion Device into Right Basilic Vein, Percutaneous Approach (ICD-10-PCS; principal; 2023-03-20)
PROC: B51MZZA Fluoroscopy of Right Upper Extremity Veins, Guidance (ICD-10-PCS; 2023-03-20)
DX: E10.10 Type 1 diabetes mellitus with ketoacidosis without coma (principal); N17.9 Acute kidney failure, unspecified; E78.00 Pure hypercholesterolemia, unspecified; E78.5 Hyperlipidemia, unspecified; E87.1 Hypo-osmolality and hyponatremia; I10 Essential (primary) hypertension; E05.20 Thyrotoxicosis with toxic multinodular goiter without thyrotoxic crisis or storm; E89.0 Postprocedural hypothyroidism; R00.0 Tachycardia, unspecified; D72.829 Elevated white blood cell count, unspecified
CPT/HCPCS: 0241U-QW; 36415; 71045-TC-FY; 80048; 80053; 80061; 81003; 82010; 82803; 82962; 83036; 83690; 83735; 84100; 84443; 84478; 84703; 85025; 87040; 87086; 93005; 93010; 99285-25

== ENCOUNTER 2023-07-13 19:04 | Emergency (ER) | payer OTHER ==
[2023-07-13 19:22] VITALS: BP 106/56; PULSE 87; RESP 16; TEMP 98.5; BMI 30.7
[2023-07-13] MEDS: CEPHALEXIN MONOHYDRATE 500 MG CAPSULE (UD) PO ONE (22:00)
[2023-07-13] MEDS ORDERED: CEPHALEXIN MONOHYDRATE 500 MG CAPSULE (UD) ONE (22:00)
== END 2023-07-13 22:31 | disposition home or self-care (01) ==
LOC: JER 19:04 → JERFT 19:04
DX: T17.0XXA Foreign body in nasal sinus, initial encounter (principal); J34.89 Other specified disorders of nose and nasal sinuses; X58.XXXA Exposure to other specified factors, initial encounter
CPT/HCPCS: 99283-25